=== PATIENT | female | born 1940 | race Two or more races ===

== ENCOUNTER → 2019-02-22 | Outpatient (CLI) | payer MEDICARE, MEDICAID ==
[~2019-02-22] MED LIST: ASPI81TA27 PO; ATOR20TA50 PO; BACL10TA PO; DILT60TA27 PO; ENA10T PO; FURO20TA PO; OME20GT PO; TRIA0.1P11 TOP
[2019-02-22 09:52] LABS: Basophils # (auto) 0 uL; Hematocrit 38.4 % (36.0-46.0); Hemoglobin 12.3 g/dL (12.2-16.2); Mean Corpuscular Hemoglobin 25.2 pg (28.0-32.0); Monocytes # (auto) 0.4 uL; Neutrophils # (auto) 5.2 uL; Nucleated Red Blood Cells % 0.1 %; White Blood Cell 6.5 10^3/uL (4.4-10.8)
[2019-02-22 09:53] LABS: Basophils % (auto) 0.3 % (0.0-2.0); Eosinophils # (auto) 0.1 uL; Eosinophils % (auto) 1.8 % (0.0-7.0); Lymphocytes # (auto) 0.8 uL; Lymphocytes % (auto) 12.1 % (10.0-50.0); Mean Corpuscular Hgb Conc. 31.9 g/dL (32.0-36.0); Mean Corpuscular Volume 79.1 fL (80.0-100.0); Monocytes % (auto) 5.6 % (0.0-12.0); Neutrophils % (auto) 80.2 % (37.0-80.0); Platelet Count (auto) 318 10^3/uL (140-450); Red Blood Cells 4.86 10^6/uL (4.0-5.20)
[2019-02-22 10:03] LABS: Potassium 3.9 mmol/L (3.5-5.1)
[2019-02-22 10:08] LABS: Free T4 (Free Thyroxine) 1.03 ng/dL (0.89-1.76)
[2019-02-22 10:09] LABS: Folate (Folic Acid) 16.32 ng/mL (5.38-24)
[2019-02-22 10:15] LABS: Albumin 3.5 g/dL (3.4-5.0); BUN/Creatinine Ratio 13.3; Bilirubin, Total 0.8 mg/dL (0.2-1.0); Calcium 8.8 mg/dL (8.5-10.1); Total Protein 8.2 g/dL (6.4-8.2)
== END | disposition home or self-care (01) ==
LOC: LAB 09:18
PROVIDERS: ATTEND Internal Medicine
DX: E11.40 Type 2 diabetes mellitus with diabetic neuropathy, unspecified (principal); I27.20 Pulmonary hypertension, unspecified; I63.9 Cerebral infarction, unspecified; E78.5 Hyperlipidemia, unspecified
CPT/HCPCS: 36415; 80053; 80061; 82607; 82746; 83036; 84439; 84443; 85025

== ENCOUNTER 2019-05-08 18:59 | Emergency (ER) | payer MEDICARE, OTHER ==
[~2019-05-08] VITALS: Ht 154.9 cm; Wt 63.5 kg
[2019-05-08] MEDS ORDERED: ACETAMINOPHEN/CODEINE#3 (300/30mg) TAB PO ONE (20:45)
[2019-05-08 22:50] VITALS: BP 119/57
== END 2019-05-08 22:33 | disposition home or self-care (01) ==
LOC: ER 19:10
DX: S52.502A Unspecified fracture of the lower end of left radius, initial encounter for closed fracture (principal); S40.012A Contusion of left shoulder, initial encounter; S60.222A Contusion of left hand, initial encounter; S70.02XA Contusion of left hip, initial encounter; E11.9 Type 2 diabetes mellitus without complications; E78.5 Hyperlipidemia, unspecified; I10 Essential (primary) hypertension; I25.2 Old myocardial infarction; W19.XXXA Unspecified fall, initial encounter; Y93.89 Activity, other specified; Y99.8 Other external cause status; Y92.89 Other specified places as the place of occurrence of the external cause
CPT/HCPCS: 29105; 73030; 73060; 73080; 73090; 73130; 73502; 93005

== ENCOUNTER 2019-09-16 11:22 | Emergency (ER) | payer MEDICARE, OTHER ==
[~2019-09-16] VITALS: Ht 157.5 cm; Wt 54.0 kg
[~2019-09-16 11:22] MED LIST changes: +ASPI-404 PO; -ASPI81TA27 PO; -ENA10T PO; +ENAL10TA PO; +FURO1TAB33 PO; -FURO20TA PO
[2019-09-16] MEDS ORDERED: ONDANSETRON HCL 4 MG/2 ML VIAL IV ONE (12:00)
[2019-09-16] MEDS ORDERED: SODIUM CHLORIDE 0.9% 500 ML IVB ONE (12:00)
[2019-09-16] MEDS ORDERED: cloNIDine HCL 0.1 MG TAB PO ONE (12:45)
[2019-09-16 12:51] LABS: Basophils # (auto) 0 uL; Basophils % (auto) 0.2 % (0.0-2.0); Eosinophils # (auto) 0 uL; Eosinophils % (auto) 0.2 % (0.0-7.0); Hematocrit 38.2 % (36.0-46.0); Hemoglobin 12.6 g/dL (12.2-16.2); Lymphocytes # (auto) 0.6 uL; Lymphocytes % (auto) 5.9 % (10.0-50.0); Mean Corpuscular Hgb Conc. 32.9 g/dL (32.0-36.0); Mean Corpuscular Volume 84.9 fL (80.0-100.0); Monocytes # (auto) 0.3 uL; Monocytes % (auto) 2.6 % (0.0-12.0); Neutrophils # (auto) 9.1 uL; Neutrophils % (auto) 91.1 % (37.0-80.0); Platelet Count (auto) 289 10^3/uL (140-450); Red Cell Distribution Width 16.6 % (11.8-14.3)
[2019-09-16 13:01] LABS: Albumin 3.3 g/dL (3.4-5.0); Calcium 8.7 mg/dL (8.5-10.1); Potassium 4.3 mmol/L (3.5-5.1)
[2019-09-16 13:05] LABS: BUN/Creatinine Ratio 13.7; Total Protein 8.2 g/dL (6.4-8.2)
[2019-09-16 14:20] VITALS: BP 105/57
[2019-09-16 15:42] LABS: Urine Bacteria MANY /hpf (None Seen); Urine Blood 1+ /uL (Negative); Urine Mucus FEW (None Seen); Urine Specific Gravity 1.015 (1.001-1.035); Urine WBC 151 /hpf (0 - 5); Urine WBC Clumps PRESENT /hpf (None Seen)
== END 2019-09-16 16:21 | disposition home or self-care (01) ==
LOC: ER 11:22
DX: R11.2 Nausea with vomiting, unspecified (principal); I11.0 Hypertensive heart disease with heart failure; I50.9 Heart failure, unspecified; E11.9 Type 2 diabetes mellitus without complications; I25.2 Old myocardial infarction; E78.00 Pure hypercholesterolemia, unspecified; Z86.73 Personal history of transient ischemic attack (TIA), and cerebral infarction without residual deficits; Z79.82 Long term (current) use of aspirin; Z79.899 Other long term (current) drug therapy
CPT/HCPCS: 36415; 74176; 80053; 81001; 83690; 85025; 94761; 96361; 96374; 99284; J2405